=== PATIENT | female | born 1975 | race Caucasian/White ===

== ENCOUNTER 2021-07-26 16:42 | Observation (INO) | payer OTHER, SELFPAY ==
[2021-07-26 16:53] VITALS: BP 167/98; PULSE 107; RESP 22; TEMP 36.6; O2SAT 97
--- NOTE | 2021-07-26 17:12 | ED.ABDPAIN ---
HPI - Abdominal Pain General Chief Complaint: Abdominal Pain Stated Complaint: food stuck not able to keep anything down Time Seen by Provider: 07/26/21 17:12 Source: patient Mode of arrival: Ambulatory Limitations: no limitations History of Present Illness HPI narrative: This is a 45-year-old female who feels like she has a piece of steak stuck in her esophagus. She was eating last night about is 8:00 p.m.. Patient states she was eating steak on the last bite she did not think she 2 did well enough it felt like it got stuck. It is felt like it is still there the entire time. She occasionally has to spit out her own saliva. She has tried water, hot water tea and hot water with baking soda and has not been able to keep any of them in. She denies other symptoms other than being uncomfortable. She has had this happen before but been able to pass the food over time. She has never had an EGD or scope she denies any major medical issues. She is allergic to hydrocodone because it makes her feel unwell. She is a daily smoker, occasional alcohol, no illicit. She is accompanied by 1 of her [address] today. Dr. Espinoza is her primary care. Related Data Home Medications Medication Instructions Recorded Confirmed Cephalexin (Keflex) 500 mg PO Q6H #0 09/17/06 Clindamycin Hydrochloride (Cleocin) 150 mg PO Q6H #0 09/17/06 Oxycodone/Acetaminophen (Percocet 0 PO PRN #0 09/17/06 5-325 MG Tablet) Allergies Allergy/AdvReac Type Severity Reaction Status Date / Time Hydrocodone Allergy Unknown Uncoded 09/14/17 11:53 Review of Systems Review of Systems ROS Unobtainable: All systems reviewed & are unremarkable except as noted in HPI and below Patient History Social History Smoking Status: Current every day smoker Smoking Status: Current every day smoker alcohol intake frequency: 0-2 drinks per day Exam Narrative Exam Narrative: GENERAL: Alert and oriented x three, obese female in mild distress. HEENT: Head normocephalic, atraumatic, EOMI, pupils reactive, face symmetric, moist mucous membranes NECK: Supple, full range of motion CARDIOVASCULAR: Regular rate and rhythm without murmurs, rubs or gallops. RESPIRATORY: Breath sounds equal bilaterally, no wheezes rales or rhonchi. ABDOMEN: Soft, nontender. Normoactive bowel sounds all 4 quadrants. No guarding or rebound, rigidity, no mass. Patient does have an emesis bag with her with clear secretions consistent with saliva. : No CVA tenderness EXTREMITIES: Normal range of motion, no clubbing or edema. Neurovascularly intact NEUROLOGICAL: Cranial nerves II through XII grossly intact. Moving all extremities SKIN: Warm, dry. Initial Vital Signs Initial Vital Signs: Vital Signs Temperature 97.8 F 07/26/21 16:53 Pulse Rate 107 H 07/26/21 16:53 Respiratory Rate 22 07/26/21 16:53 Blood Pressure 167/98 H 07/26/21 16:53 Pulse Oximetry 97 07/26/21 16:53 Course Orders Ordered: ED Orders 07/26/21 18:04 COVID19 -Nasal swab/Pre-Proc Stat Discontinued Medications Glucagon (Glucagon,Human Recombinant 1 Mg/Ml Vial) 1 mg IV NOW ONE Stop: 07/26/21 17:22 Last Admin: 07/26/21 17:51 Dose: 1 mg Documented by: FLACA Reevaluation(s) Reevaluation #1: Patient had glucagon with alexa larissa immediately afterwards without any success. Time: 18:14 Consultations Consultation #1: Dr. Jesus plan for scope. Likely in AM as patient has obesity for airway protection. She will put in orders. Vital Signs Vital signs: Vital Signs - 8 hr 07/26/21 16:53 Temperature 97.8 F Pulse Rate 107 H Respiratory Rate 22 Blood Pressure 167/98 H Pulse Oximetry 97 MDM - Abdominal Pain Lab Data Labs: Lab Results 07/26/21 Range/Units 18:04 SARS-CoV-2 (PCR) Negative (Negative) MDM Narrative Medical decision making narrative: Patient has history and clinical findings consistent with esophageal food bolus. Will attempt glucagon if unsuccessful plan for COVID swab and consultation with General surgery for EGD. Patient unsuccessful with glucagon. Discussed with general surgery who plans to take to the OR in the morning secondary to obesity and concern for potential airway issues with sedation. Discharge Plan Departure Patient Disposition: Admitted as Observation Clinical Impression: Food impaction of esophagus
[2021-07-26] MEDS: GLUCAGON,HUMAN RECOMBINANT 1 MG/ML VIAL IV (17:51)
[2021-07-26 18:26] LABS: COVID19 -Nasal RAPID Negative (Negative)
[2021-07-26 18:47] VITALS: BP 150/107; PULSE 65; RESP 16; TEMP 36.9; O2SAT 100
[2021-07-26 19:55] VITALS: BMI 48.1
[2021-07-26] MEDS: PANTOPRAZOLE 40 MG VIAL IV (20:10)
[2021-07-26] MEDS: LACTATED RINGERS 1,000 ML 150 ML IV (20:10)
[2021-07-26 22:00] VITALS: BP 144/86; PULSE 79
[2021-07-27] VITALS (9 sets, daily range): BP systolic 141–171; BP diastolic 80–109; PULSE 73–95; RESP 12–18; TEMP 36.5–37.5; O2SAT 93–100; BMI 48.1
[2021-07-27] MEDS: LACTATED RINGERS 1,000 ML 150 ML IV ×2 (02:47→09:01)
--- NOTE | 2021-07-27 07:54 | PM.HP.1 ---
History of Present Illness History of Present Illness Date Patient Seen: 07/27/21 Time Patient Seen: 07:54 Date of Onset of Symptoms: 07/27/21 Chief complaint: food stuck not able to keep anything down Narrative: Has had food stick in past but resolves spontaneously. 8pm on Tuesday had chicken that has yet to pass, she has been dealing with her secretions by spitting. Reports intermittent heartburn that she treats with papaya. Currently having spasms in the lower esophagus, no nausea or emesis. Patient History Medical History (Updated 07/27/21 @ 07:58 by Cinthya Jesus MD) Cervical sprain (01/04/02) Family & Social History Social History: household members children Prior Living Arrangements House Safety & Behavioral: Feels Safe in Current Yes Environment Been Physically Hurt or No Threatened By a Person Suicidal Ideation Description None Suicide Plan Description No Plan Tobacco & Substance use: Tobacco type cigarettes Smoking Status Current every day smoker alcohol intake frequency holiday/special occasion Substance Use Type does not use Meds Home Medications and Allergies Home Medications Medication Instructions Recorded Confirmed Type No Known Home Medications 07/27/21 07/27/21 History Allergies Allergy/AdvReac Type Severity Reaction Status Date / Time Hydrocodone AdvReac Severe tachycardia Uncoded 07/26/21 19:54 Review of Systems Review of Systems ROS: Yes All systems reviewed with the patient and are negative except as otherwise documented Exam Vital Signs (past 8 hours): - 07/27/21 02:00 07/27/21 06:00 Temperature 99.0 F Pulse Rate 81 Respiratory Rate 18 16 Blood Pressure 143/80 H Pulse Oximetry 100 Oxygen Delivery Method Room Air Oxygen Flow Rate 0 Const General: cooperative, healthy appearing and comfortable Nutritional Appearance: obese HENMT Head: normocephalic and atraumatic Ears: hearing grossly normal bilaterally Neck Neck: trachea midline Chest Chest: normal inspection of the chest Resp Effort & Inspection: normal respiratory effort and able to speak in complete sentences Cardio Rate: regular rate Rhythm: regular rhythm GI Inspection: normal to inspection Palpation: soft Skin General: turgor normal Neuro General: patient alert and patient oriented x3 Extrem General: normal to inspection and full ROM Psych Mental Status: mental status grossly normal Attitude: cooperative Thought Process: normal Judgment: judgment good Objective Labs Labs: Laboratory Results - last 24 hr 07/26/21 18:04 SARS-CoV-2 (PCR) Negative Assessment & Plan Assessment & Plan narrative: Food impaction in esophagus GERD obesity with BMI 48 Plan: EGD with anesthesia for removal of forgien body Time Spent With Patient Critical Care time: I spent a total of [] minutes of critical care time on this patient's care today; this time is exclusive of procedural time.
--- NOTE | 2021-07-27 08:54 | CM.DANOTE ---
DCP: Case received, EMR reviewed and met with patient. Introduced self and role. Was able to obtain information regarding patient's baseline activity status prior to hospitalization. DCP assessment completed with information currently available. Patient is a 45 year old female who admitted yesterday afternoon to the care of the hospitalist team. PCP: Dr. Espinoza. Payer: confirmed: [employer]. Patient came to the hospital via private vehicle secondary to having food lodged in her throat. According to notes, patient had chicken, which had gotten stuck, and was dealing with secretions by spitting. She was also having spasms in her lower esophagus. She is going to be having an EGD with anesthesia for removal of foreign body. Met briefly with patient in her room. Nursing was getting ready to take her downstairs for her procedure. She is alert and oriented, and resides in [facility] with her son. She is independent, and is employed at [employer]. P: DCP to continue to follow. She is having her procedure. Patient should be able to go home when she is deemed medically stable. Alejandra Pina RN/Food Service Assistant Discharge Planning/Care Management CM Discharge Assessment Start: 07/27/21 08:52 Freq: Status: Active Protocol: Document 07/27/21 08:53 (Rec: 07/27/21 08:54 [id number]) Discharge Planning Assessment Assigned Supervisor Whipped Topping Alejandra Pina RN/Food Service Assistant Advance Directives? No History Provided By Patient,Medical Record Prior Living Arrangements House Household Members children Type of transporation used prior to Drives own vehicle admit Independent with ADL's Yes Is patient alert and oriented? Yes Caregiver for Another No Discharge Plan Home Transportation Arrangement Family Referrals Initiated None needed Whiteboard Updated in Patient Room with Yes name and ext. # of Supervisor Whipped Topping Review Status In Process Next Review Type Continued Stay Review
--- NOTE | 2021-07-27 09:45 | PM.OP.ENDO ---
Operative Date/Time/Diagnoses Date of procedure: 07/27/21 Time of procedure: 09:45 Pre-op diagnosis: foreign body in esophagus Post-op diagnosis: same Procedure & Clinicians Study performed: EGD with removal of foriegn body Same procedure as scheduled: Yes Indications: food bolus in esophagus Surgeon: Cinthya Jesus Procedure Notes SCOAP/Timeout: done Procedure in detail: Preop diagnosis: Food bolus in the esophagus Postop diagnosis: Same Operative procedure: EGD with anesthesia for removal of foreign body Surgeon: Makenzie Jesus MD Findings: Food bolus has already passed. No ulcerations. Mild irritation of distal esophagus. No significant hiatal hernia. No significant stricture. Procedure: Patient placed in a sitting position. Anesthetic was provided. Scope inserted into the esophagus advanced to the stomach identified the pylorus. I did not intubate into the duodenum, but did retroflex did show that she has good patent valve. Extraction back and the esophagus confirmed the food bolus had passed prior to procedure. Mild irritation at the distal esophagus for food bolus had been. No ulcerations, no significant stricture noted. Impression: Foreign body in the esophagus past spontaneous. No significant stricture. Plan: 4 weeks of proton pump inhibitor. Follow-up with primary care physician. Discharge home today. Findings: other findings (Admitted for food bolus. The food bolus however spontaneously passed. No hiatal hernia. No ulcerations. No significant distal esophageal stricture) Specimen(s): none sent Complications: none Impression: Food bolus passed spontaneously. No significant stricture for dilation. No gastritis or distal esophageal changes. No significant hiatal hernia Post-procedure Plan for aftercare: 4 weeks of PPI Follow up: as needed Disposition: PACU
--- NOTE | 2021-07-27 11:56 | PC.NURSE ---
Pt discharged at 11:55, escorted off floor in wheelchair, accompanied by hospital staff. Pt discharging to home in a personal vehicle. IV removed, discharge teaching reviewed including importance of making follow up appointment and taking prescribed medication. Questions answered. Pt left with all belongings.
== END 2021-07-27 11:55 | disposition home or self-care (01) ==
LOC: ED 18:19 → AC 18:39
PROVIDERS: Admitting Provider Surgery; Emergency Provider Emergency Medicine; PCP Family Medicine; Referring Provider Emergency Medicine; Visit Provider Surgery
PROC: 0DJ08ZZ Inspection of Upper Intestinal Tract, Via Natural or Artificial Opening Endoscopic (ICD-10-PCS; CPT 43235; principal; 2021-07-27 09:15)
DX: R10.9 Unspecified abdominal pain (principal); K21.9 Gastro-esophageal reflux disease without esophagitis; F17.210 Nicotine dependence, cigarettes, uncomplicated; E66.01 Morbid (severe) obesity due to excess calories; Z68.42 Body mass index [BMI] 45.0-49.9, adult; Z20.822 Contact with and (suspected) exposure to COVID-19
CPT/HCPCS: 43235; 87635; 96361; 96374; 96375; 99225; 99284; C9803; G0378; C9113; J1610; J2250; J2704

== ENCOUNTER → 2022-01-05 12:26 | Outpatient (CLI) | payer OTHER, SELFPAY ==
--- NOTE | 2022-01-05 12:29 | DI.RAD.S_ITS ---
PROCEDURE: XR SHOULDER LT MIN 2V INDICATIONS: Other synovitis and tenosynovitis, unspecified shoulder TECHNIQUE: 4 views of the shoulder were acquired. COMPARISON: None. FINDINGS: Bones: No fractures or dislocations. No suspicious bony lesions. Visualized ribs appear intact. Mild glenohumeral joint osteoarthritic degenerative changes. Soft tissues: No suspicious soft tissue calcifications. IMPRESSION: Mild glenohumeral joint osteoarthritis. Dictated by: Ale Tidwell MD, PhD on 01/05/2022 at 16:46 Approved by: Ale Tidwell MD, PhD on 01/05/2022 at 16:46
== END ==
PROVIDERS: PCP Family Medicine; Referring Provider Family Medicine; Visit Provider Family Medicine
DX: M65.819 Other synovitis and tenosynovitis, unspecified shoulder (principal); M19.012 Primary osteoarthritis, left shoulder
CPT/HCPCS: 73030

== ENCOUNTER 2024-03-16 08:46 | Day surgery (SDC) | payer OTHER, SELFPAY ==
[2022-05-09 02:38] VITALS: BMI 48.1
[2024-03-14 07:39] VITALS: BMI 48.6
--- NOTE | 2024-03-16 | PATH_ITS ---
[facility] Accession Number: [id number] No. of containers..06 Tissue . 01 Material submitted: . PART A: cervix - 2 PART B: cervix - 6 PART C: cervix - 10 PART D: cervix - 12 PART E: cervix - 9 PART F: endocervix - ENDOCERVICAL CURRETTINGS . 01 Diagnosis: A. CERVIX, 2 O'CLOCK, BIOPSY: Fragments of squamous epithelium with no evidence of neoplasm. Transformation zone not sampled. . B. CERVIX, 6 O'CLOCK, BIOPSY: Squamous mucosa with no evidence of neoplasm. Transformation zone not sampled. Additional levels were examined. . C. CERVIX, 10 O'CLOCK, BIOPSY: Squamous mucosa with no evidence of neoplasm. Transformation zone not sampled. Additional levels were examined. . D. CERVIX, 12 O'CLOCK, BIOPSY: Squamous mucosa with no evidence of neoplasm. Transformation zone not sampled. Additional levels were examined. . E. CERVIX, 9 O'CLOCK, BIOPSY: Squamous mucosa with focal features suggestive of but not diagnostic for low-grade squamous intraepithelial lesion. Multiple additional deeper levels were examined. Transformation zone not sampled. . F. ENDOCERVICAL CURETTINGS: Fragment of low-grade squamous intraepithelial lesion (LSIL/CHRISTEN-1). Separate fragments of benign squamous and endocervical epithelium are also present. [facility] 03/21/2024 [facility] Local . 01 Electronically signed: . Marleni Bolden MD, Pathologist NPI- [id number] . 01 Gross description: . A. Received in formalin with two patient identifiers and 2, are multiple jason soft tissue fragments aggregating to 1.3 x 0.6 x 0.2 cm. Filtered and submitted in cassette A1. B. Received in formalin with two patient identifiers and 6, is a single jason soft tissue fragment 0.4 cm in greatest dimension. Submitted in cassette B1. C. Received in formalin with two patient identifiers and 10, is a single jason soft tissue fragment 0.3 cm in greatest dimension. Submitted in cassette C1. D. Received in formalin with two patient identifiers and 12, is a single jason soft tissue fragment 0.4 cm in greatest dimension. Submitted in cassette D1. E. Received in formalin with two patient identifiers and 9, is a single jason soft tissue fragment 0.4 cm in greatest dimension. Submitted in cassette E1. F. Received in formalin with two patient identifiers and endocervical curettage, are multiple jason to brown soft tissue fragments admixed with mucoid material aggregating to 2.0 x 1.2 x 0.2 cm. Filtered and submitted in cassette F1. ([id number]) /[facility] 03/17/20242039 Local . 01 Pathologist provided ICD-10: N87.0 . 01 CPT . 217973, 497160, 776082, 813798, 217480, 242446 Specimen Comment: A courtesy copy of this report has been sent to [facility] Performed at: [address] [facility] [address] [address], [place], [place] [id number] MD Laci Alfaro MD Phone: [phone]
[2024-03-16] MEDS: LACTATED RINGERS 1,000 ML 42 ML IV (09:29)
[2024-03-16] MEDS: SCOPOLAMINE 1 PATCH TOP (09:33)
[2024-03-16 09:35] VITALS: BP 151/89; PULSE 95; RESP 24; TEMP 37.1; O2SAT 100; BMI 47.9
--- NOTE | 2024-03-16 09:50 | PM.GYNHP.1 ---
History of Present Illness History of Present Illness Reason for admission: other Narrative: Odilia Walden is a 48 year old female who presents for scheduled EUA with colposcopy, biopsy and ECC secondary to persistent +HR-HPV since 2016 and prior intolerance to office surveillance. Patient states she is feeling okay today other than some moderate anxiety. Denies significant changes in personal or family health history since time of last encounter and affirms desire to proceed with procedure as scheduled today [facility] Medical History HTN (hypertension) BMI 45.0-49.9, adult NIKKI (obstructive sleep apnea) High risk for cervical cancer High risk human papillomavirus (HPV) detected Cervical sprain (01/04/02) Social History household members: children Smoking Status: Former smoker Meds Home Medications and Allergies Home Medications Medication Instructions Recorded Confirmed Type losartan 100 mg tablet 100 mg PO DAILY 01/06/24 03/16/24 History Allergies Allergy/AdvReac Type Severity Reaction Status Date / Time azithromycin Allergy Severe Hives Verified 03/16/24 09:18 hydrocodone AdvReac Severe Tachycardia Verified 03/16/24 09:18 Review of Systems Review of Systems ROS: Yes All systems reviewed with the patient and are negative except as otherwise documented Exam Vital Signs (past 8 hours): - 03/16/24 09:35 Temperature 98.7 F Pulse Rate 95 H Respiratory Rate 24 Blood Pressure 151/89 H Pulse Oximetry 100 Oxygen Delivery Method Room Air Oxygen Delivery Method Room Air Const General: cooperative and comfortable Nutritional Appearance: obese Orientation: alert, awake and oriented x3 Limitations: mental status not altered Resp Effort & Inspection: normal respiratory effort and able to speak in complete sentences Cardio Pulses: normal peripheral pulses Other: deferred Skin General: no rashes or lesions noted Neuro General: patient alert, patient awake and patient oriented x3 Extrem General: normal to inspection Psych Mental Status: mental status grossly normal Judgment: judgment good Assessment & Plan Assessment and plan (1) High risk for cervical cancer: Status: Acute Plan 48yo presents for scheduled EUA with colposcopy, cervical biopsy and ECC Pt affirms desire to proceed with procedure as scheduled anticipate postoperative course reviewed dispo: to OR Time-Based Coding :: [TOTAL MINUTES] spent with patient and on the chart (including review of chart, obtaining history, exam, reviewing outside data, placing orders, documenting exam and treatment plan, and counseling patient) on [DATE].
--- NOTE | 2024-03-16 09:50 | PM.PREOP ---
Pre-operative Note Interval Note History & Physical reviewed/Exam performed by Physician: Yes Changes to H&P: No H&P completed within 30 days and has changed as indicated here:: 03/16/24 ASA Class (for procedural sedation): II
--- NOTE | 2024-03-16 10:29 | SUR.OPER ---
Lithotomy on padded OR bed, head on pillow, arms secured on padded arm boards at <90 degrees abduction. Legs secured in padded yellow fins stirrups. Warm blanket upper body. Safety strap across abdomen.
[2024-03-16] MEDS: ACETIC ACID 500 ML IRRIG 20 ML TOP (10:34)
[2024-03-16] MEDS: SILVER NITRATE STICK 2 EACH TOP (10:37)
[2024-03-16] MEDS: FERRIC SUBSULFATE 8 ML SOLUTION TOP (10:43)
--- NOTE | 2024-03-16 10:47 | P.OP_ITS ---
Operative Date/Time/Diagnoses Date of procedure: 03/16/24 Time of procedure: 10:47 Pre-op diagnosis: persistent +high-risk HPV Post-op diagnosis: same Procedure & Clinicians Procedure: EUA, colposcopy with biopsy and ECC Same procedure as scheduled: Yes Indications: persistent positive HR-HPV with inadequate surveillance Surgeon: Kenyetta Dugan Click Yes if Unassisted: Yes Anesthesia Type: General Operative Notes Findings: normal external female gentialia, non-thrombosed external hemorrhoid urethra and vagina visually wnl anterior cervix with moderate retraction, noted acetowhite change at 9, 10 and 2 o'clock positions inadequate visualization of SCJ visual impression is that of CIN1/2 Closure Type: not applicable Specimen(s): other (ectocervical biopsy (10, 12, 2 and 9 o'clock), endocervical curettage ) Estimated Blood Loss (mL): 10 Blood products transfused: none Procedure in detail: Pt was taken to the operating room, transferred to OR table and anesthesia was induced with placement of ETT. Pt had her legs placed in Nolberto stirrups and an exam under anesthesia was performed. A sterile insulated speculum was inserted into the vagina.? The cervix was visualized and grasped anteriorly using an insulated single tooth tenaculum.? Acetic acid was applied copiously to the cervix with delineation of previously described areas of acetowhite change. The cervix was swabbed with betadine. The tischler forceps were used to obtain ect ocervical biopsies from 10/12/2/6/9 o'clock positions followed by generous ECC. Hemostasis noted following application of silver nitrate and monsels. Speculum was removed. The patient then had her legs taken out of stirrups.? The patient tolerated the procedure well and without difficulty.? The patient was awakened from anesthesia and taken to PACU in stable condition. Complications: none Post-operative Condition: stable Disposition: PACU Plan for aftercare: anticipate dc to home routine postop f/u in office as scheduled
[2024-03-16 11:00] VITALS: BP 120/68; PULSE 88; RESP 16; TEMP 36.3; O2SAT 98
[2024-03-16 11:05] VITALS: BP 135/68; PULSE 88; RESP 16; O2SAT 98
[2024-03-16 11:15] VITALS: BP 132/78; PULSE 87; RESP 16; TEMP 36.2; O2SAT 98
[2024-03-16 11:16] VITALS: BP 123/77; PULSE 88; RESP 15; O2SAT 98
== END 2024-03-16 11:38 | disposition home or self-care (01) ==
PROVIDERS: PCP Family Medicine; Referring Provider Obstetrics & Gynecology; Visit Provider Obstetrics & Gynecology
PROC: (CPT 57410; principal; 2024-03-16 10:15)
DX: R87.810 Cervical high risk human papillomavirus (HPV) DNA test positive (principal); K64.4 Residual hemorrhoidal skin tags; N87.0 Mild cervical dysplasia
CPT/HCPCS: 57505; A9270; J0330; J1100; J1885; J2405; J2704; J3010